=== PATIENT | female | born 1990 | race Hispanic/Latino ===

== ENCOUNTER 2017-03-14 23:07 | Inpatient (IN) | payer SELFPAY ==
[2017-03-15 00:03] LABS: #Lymphocytes 1.2 thou/uL (1.20-3.40); #Neutrophils 17.5 thou/uL (1.40-6.50); %Eosinophils 0.1 % (0.0-10.0); %Monocytes 5.2 % (0.0-10.0); Hematocrit 33.5 % (36.0-47.0); Mean Platelet Volume 7.4 fL (7.4-10.4); Red Blood Cell (RBC) Count 4.23 mill/uL (4.20-5.40); White Blood Cell (WBC) Count 19.7 thou/uL (4.8-10.8)
[2017-03-15 00:23] LABS: ALT (SGPT) 50 U/L (8-55); AST (SGOT) 88 U/L (5-34); Alkaline Phosphatase 124 U/L (40-150); Anion Gap 14 mmol/L (10-20); BUN (Urea Nitrogen) 10 mg/dL (7.0-18.7); Bilirubin, Total 1.1 mg/dL (0.2-1.2); Calc. Creatinine Clearance 0 mL/min (70-130); Calcium 8.6 mg/dL (7.8-10.44); Carbon Dioxide 22 mmol/L (22-29); Chloride 95 mmol/L (98-107); Estimated GFR-MDRD Greater than 90; Globulin 4.4 g/dL (2.4-3.5); Protein, Total 7.7 g/dL (6.0-8.3)
[2017-03-15 02:54] LABS: Lactic Acid - Sepsis 2.8 mmol/L (0.5-2.2)
[2017-03-15] MEDS ORDERED: Piperacillin/Tazobactam 4.5 GM in Sodium Chloride 0.9% 100 ML IVPB SCH (03:30)
[2017-03-15] MEDS ORDERED: Fentanyl 100 MCG/2 ML VIAL ONE ×2 (04:12→07:33)
[2017-03-15] MEDS ORDERED: Morphine 4 MG/ML VIAL ONE (05:03)
[2017-03-15] MEDS ORDERED: Acetaminophen 500 MG TAB ONE (05:17)
[2017-03-15] MEDS ORDERED: Neomycin-Polymyxin 1 ML AMP ONE (05:27)
[2017-03-15] MEDS ORDERED: Sodium Bicarb 50 MEQ/50 ML Abboject 8.4% SYRINGE ONE ×2 (05:27→05:46)
[2017-03-15] MEDS ORDERED: Midazolam HCl 2 mg/2 ml Vial ONE (05:51)
[2017-03-15] MEDS ORDERED: Fentanyl 250 MCG/5 ML VIAL ONE (05:51)
[2017-03-15] MEDS ORDERED: Promethazine HCl 25 MG/ML VIAL SLOW IVP PRN (07:21)
[2017-03-15] MEDS ORDERED: Promethazine HCl 25 MG/ML VIAL IM PRN (07:21)
[2017-03-15] MEDS ORDERED: Ondansetron HCl/PF 4 MG/2 ML Vial IVP PRN (07:21)
[2017-03-15 07:39] LABS: Amphetamine Detected (NotDetected); Methadone Not Detected (NotDetected); Methamphetamine Detected (NotDetected)
[2017-03-15 08:17] LABS: Anion Gap 8 mmol/L (10-20); BUN (Urea Nitrogen) 6 mg/dL (7.0-18.7); Calc. Creatinine Clearance 0 mL/min (70-130); Calcium 7.1 mg/dL (7.8-10.44); Carbon Dioxide 21 mmol/L (22-29); Chloride 104 mmol/L (98-107); Estimated GFR-MDRD Greater than 90
[2017-03-15] MEDS ORDERED: Lidocaine 1% PF 5 ML VIAL ONE (08:53)
[2017-03-15] MEDS ORDERED: Succinylcholine Chloride 20 MG/ML 10 ml SYRINGE FS ONE (08:53)
[2017-03-15] MEDS ORDERED: Propofol 200 MG/20 ML VIAL ONE (08:53)
[2017-03-15] MEDS ORDERED: PHENYLEPHRINE-NS 100 MCG/ML 10 ML SYRINGE ONE (08:53)
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
[2017-03-15] MEDS ORDERED: Bisacodyl 5 MG TAB PO PRN (09:37)
[2017-03-15] MEDS ORDERED: Ondansetron ODT 4 MG TAB PO PRN (09:37)
[2017-03-15] MEDS ORDERED: Acetaminophen 325 MG TAB PO PRN (09:37)
[2017-03-15] MEDS ORDERED: HYDROcodone/Acetaminophen 5/325 mg Tablet PO PRN (09:37)
[2017-03-15] MEDS ORDERED: Bisacodyl 10 MG SUPP PR PRN (09:37)
[2017-03-15 09:54] VITALS: BMI 21.9
[2017-03-15] MEDS: Ketorolac Tromethamine 30 MG/ML VIAL IVP PRN ×2 (10:27→16:09)
[2017-03-15] MEDS ORDERED: Docusate 100 MG CAP PO SCH (10:30)
[2017-03-15] MEDS ORDERED: Famotidine 20 MG TAB PO SCH (10:30)
[2017-03-15] MEDS: Fentanyl 100 MCG/2 ML VIAL SLOW IVP PRN ×3 (10:47→21:10)
[2017-03-15] MEDS: Piperacillin/Tazobactam 3.375 GM in Sodium Chloride 0.9% 100 ML IVPB SCH ×3 (11:43→23:50)
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
[2017-03-15] MEDS: Vancomycin HCl 1 GM in Premix Bag 1 BAG IVPB SCH (16:03)
[2017-03-15] MEDS: D5 1/2 NS w/10 mEq KCl 1,000 ML/1,000 ML BAG IV SCH (16:19)
[2017-03-15] MEDS ORDERED: ISOVUE-370 76%-LOCM 1 ML ONE (16:59)
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
[2017-03-15] MEDS: Famotidine 20 MG TAB PO SCH (21:03)
[2017-03-15] MEDS: Docusate 100 MG CAP PO SCH (21:03)
[2017-03-16] MEDS: D5 1/2 NS w/10 mEq KCl 1,000 ML/1,000 ML BAG IV SCH ×4 (00:03→18:07)
[2017-03-16] MEDS: HYDROcodone/Acetaminophen 5/325 mg Tablet PO PRN (01:29)
[2017-03-16] MEDS: Fentanyl 100 MCG/2 ML VIAL SLOW IVP PRN ×7 (03:10→23:02)
[2017-03-16 05:30] LABS: #Lymphocytes 0.9 thou/uL (1.20-3.40); #Monocytes 0.8 thou/uL (0.11-0.59); #Neutrophils 12.2 thou/uL (1.40-6.50); %Basophils 0.1 % (0.0-1.0); %Eosinophils 0.2 % (0.0-10.0); %Lymphocytes 6.2 % (21.0-51.0); %Monocytes 5.7 % (0.0-10.0); Hematocrit 25.4 % (36.0-47.0); Mean Platelet Volume 7.8 fL (7.4-10.4); Red Blood Cell (RBC) Count 3.17 mill/uL (4.20-5.40); White Blood Cell (WBC) Count 13.8 thou/uL (4.8-10.8)
[2017-03-16 05:32] LABS: Anion Gap 9 mmol/L (10-20); BUN (Urea Nitrogen) 5 mg/dL (7.0-18.7); CK (CPK) 611 U/L (29-168); Calc. Creatinine Clearance 137 mL/min (70-130); Carbon Dioxide 25 mmol/L (22-29); Chloride 109 mmol/L (98-107); Estimated GFR-MDRD Greater than 90
[2017-03-16] MEDS: Piperacillin/Tazobactam 3.375 GM in Sodium Chloride 0.9% 100 ML IVPB SCH ×3 (08:00→18:14)
[2017-03-16] MEDS ORDERED: Enoxaparin Sodium 40 MG/0.4 ML SYRINGE SC SCH (09:00)
[2017-03-16] MEDS: Vancomycin HCl 1 GM in Premix Bag 1 BAG IVPB SCH ×3 (10:26→23:24)
[2017-03-16] MEDS: Famotidine 20 MG TAB PO SCH ×2 (10:37→20:35)
[2017-03-16] MEDS: Docusate 100 MG CAP PO SCH ×2 (10:37→22:42)
[2017-03-16] MEDS ORDERED: Lidocaine 4% Topical Sol 50 ML BOT TOP PRN (11:53)
[2017-03-16] MEDS ORDERED: Fentanyl 100 MCG/2 ML VIAL SLOW IVP SCH (12:00)
--- NOTE | 2017-03-16 16:12 | PDOC.PN ---
- Subjective Encounter Start Date: 03/16/17 Encounter Start Time: 16:10 Patient seen and examined. No new complaints. No overnight events c/o pain - Objective Resuscitation Status: Resuscitation Status FULL:Full Resuscitation MAR Reviewed: Yes Vital Signs & Weight: Vital Signs (12 hours) Temp Pulse Resp Pulse Ox 03/16/17 09:45 99 F 109 H 16 98 Weight Admit Weight 140 lb Weight 140 lb I&O: 03/15/17 03/16/17 03/17/17 06:59 06:59 06:59 Intake Total 1400 Output Total 5915 Balance -4515 Result Diagrams: 03/16/17 04:26 03/16/17 04:26 Phys Exam - Physical Examination Constitutional: NAD HEENT: PERRLA Neck: no JVD Respiratory: no wheezing Cardiovascular: no significant murmur Gastrointestinal: non-tender rt calf in abscess Neurological: moves all 4 limbs Psychiatric: A&O x 3 Dx/Plan (1) MRSA bacteremia Code(s): R78.81 - BACTEREMIA Status: Acute (2) Polysubstance (excluding opioids) dependence Code(s): F19.20 - OTHER PSYCHOACTIVE SUBSTANCE DEPENDENCE, UNCOMPLICATED Status: Acute (3) Sepsis Code(s): A41.9 - SEPSIS, UNSPECIFIED ORGANISM Status: Acute (4) Tobacco use Code(s): Z72.0 - TOBACCO USE Status: Acute (5) Rhabdomyolysis Code(s): M62.82 - RHABDOMYOLYSIS Status: Acute (6) Anemia Code(s): D64.9 - ANEMIA, UNSPECIFIED Status: Acute - Plan * cont abx * monitor labs * transfuse if needed * pain mx * f/u dr pedraza plan
[2017-03-17] MEDS: Fentanyl 100 MCG/2 ML VIAL SLOW IVP PRN ×3 (01:26→05:49)
[2017-03-17 04:24] VITALS: BP 112/77
[2017-03-17 05:16] LABS: #Eosinphils 0.1 thou/uL (0.0-0.7); #Lymphocytes 1.5 thou/uL (1.20-3.40); #Monocytes 0.7 thou/uL (0.11-0.59); #Neutrophils 7.9 thou/uL (1.40-6.50); %Basophils 0.1 % (0.0-1.0); %Eosinophils 1.4 % (0.0-10.0); %Lymphocytes 14.7 % (21.0-51.0); %Monocytes 6.5 % (0.0-10.0); Mean Platelet Volume 7.4 fL (7.4-10.4); Red Blood Cell (RBC) Count 3.36 mill/uL (4.20-5.40); White Blood Cell (WBC) Count 10.2 thou/uL (4.8-10.8)
[2017-03-17 05:31] LABS: Anion Gap 9 mmol/L (10-20); BUN (Urea Nitrogen) 4 mg/dL (7.0-18.7); BUN/Creatinine Ratio 6.67; CK (CPK) 244 U/L (29-168); Calc. Creatinine Clearance 141 mL/min (70-130); Calcium 8.5 mg/dL (7.8-10.44); Carbon Dioxide 26 mmol/L (22-29); Chloride 110 mmol/L (98-107); Estimated GFR-MDRD Greater than 90
[2017-03-17] MEDS: D5 1/2 NS w/10 mEq KCl 1,000 ML/1,000 ML BAG IV SCH (05:42)
[2017-03-17 06:22] LABS: Phosphorus 1.8 mg/dL (2.3-4.7)
[2017-03-17] MEDS: HYDROcodone/Acetaminophen 5/325 mg Tablet PO PRN (08:17)
[2017-03-17] MEDS: Ketorolac Tromethamine 30 MG/ML VIAL IVP PRN (08:18)
[2017-03-17 10:14] VITALS: TEMP 98.3
--- NOTE | 2017-03-17 13:21 | PDOC.PN ---
- Subjective Encounter Start Date: 03/17/17 Encounter Start Time: 13:20 Patient seen and examined. No new complaints. No overnight events - Objective Resuscitation Status: Resuscitation Status FULL:Full Resuscitation MAR Reviewed: Yes Vital Signs & Weight: Vital Signs (12 hours) Temp Pulse Resp BP Pulse Ox 03/17/17 08:00 98.3 F 96 16 100 03/17/17 04:23 98.6 F 96 17 112/77 100 03/17/17 04:10 99 Weight Admit Weight 140 lb Weight 140 lb I&O: 03/16/17 03/17/17 03/18/17 06:59 06:59 06:59 Intake Total 1400 Output Total 5915 0359 Balance -5615 -4992 Result Diagrams: 03/17/17 04:55 03/17/17 04:55 Phys Exam - Physical Examination Constitutional: NAD HEENT: PERRLA Neck: no JVD Respiratory: no wheezing Cardiovascular: no significant murmur Gastrointestinal: non-tender Musculoskeletal: pulses present Neurological: moves all 4 limbs Psychiatric: A&O x 3 Dx/Plan (1) MRSA bacteremia Code(s): R78.81 - BACTEREMIA Status: Acute (2) Polysubstance (excluding opioids) dependence Code(s): F19.20 - OTHER PSYCHOACTIVE SUBSTANCE DEPENDENCE, UNCOMPLICATED Status: Acute (3) Sepsis Code(s): A41.9 - SEPSIS, UNSPECIFIED ORGANISM Status: Acute (4) Tobacco use Code(s): Z72.0 - TOBACCO USE Status: Acute (5) Rhabdomyolysis Code(s): M62.82 - RHABDOMYOLYSIS Status: Acute (6) Anemia Code(s): D64.9 - ANEMIA, UNSPECIFIED Status: Acute - Plan * cont current plan * will sign off
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
== END 2017-03-17 10:18 | disposition left against medical advice (07) | DRG 854 ==
LOC: EEVIPCON 23:07 → ERS 23:07 → SURG B 03-15 06:07
PROVIDERS: ADMIT Orthopaedic Surgery; ATTEND Orthopaedic Surgery
PROC: 0J9N0ZZ Drainage of Right Lower Leg Subcutaneous Tissue and Fascia, Open Approach (ICD-10-PCS; principal; 2017-03-15)
DX: A41.9 Sepsis, unspecified organism (principal); E87.2 Acidosis; L02.415 Cutaneous abscess of right lower limb; M62.82 Rhabdomyolysis; E87.1 Hypo-osmolality and hyponatremia; B95.62 Methicillin resistant Staphylococcus aureus infection as the cause of diseases classified elsewhere; F17.210 Nicotine dependence, cigarettes, uncomplicated; F41.9 Anxiety disorder, unspecified; F32.9 Major depressive disorder, single episode, unspecified; E87.6 Hypokalemia; D64.9 Anemia, unspecified; F19.10 Other psychoactive substance abuse, uncomplicated
CPT/HCPCS: 36415; 36416; 80048; 80053; 80069; 80306; 82550; 83605; 84703; 85025; 86780; 86803; 87040; 87070; 87077; 87149; 87186; 87205; 87389; 87491; 87591; 96361; 96365; 96366; 96367; 96375; 99406; G8978-GP-CI; G8979-GP-CI; J0131; J1650; J1885; J2001; J2250; J2270; J2543; J2704; J3010; J3370; J7050